=== PATIENT | female | born 1985 | race African-American/Black ===

== ENCOUNTER 2022-02-22 00:15 | Emergency (ER) | payer SELFPAY ==
[~2022-02-22] VITALS: Ht 152.4 cm; Wt 90.9 kg
[2022-02-22 00:25] VITALS: BP 111/59
[2022-02-22] MEDS ORDERED: ibuprofen tablet 400 MG TABLET PO ONE (04:00)
== END 2022-02-22 04:17 | disposition home or self-care (01) ==
LOC: ER 00:16
DX: M25.471 Effusion, right ankle (principal); M25.472 Effusion, left ankle
CPT/HCPCS: 99283